=== PATIENT | female | born 1970 | race Caucasian/White ===

== ENCOUNTER 2022-02-26 13:56 | Outpatient (REF) | payer MEDICAID, SELFPAY ==
[2022-02-26 16:55] LABS: HCT 41.8 % (36.0-46.0); HGB 13.4 g/dL (11.2-15.7); MCH 27.3 pg (27.0-33.0); MCHC 32.1 % (32.0-36.0); MCV 85.3 fL (80-95); MPV 9.7 fL (8.0-11.0); Platelet Count 272 10^3/uL (130-400); RDW 13.4 % (11.7-14.6); RDW-SD 41.9 fL; WBC 3.86 10^3/uL (4.4-10.8)
[2022-02-26 18:04] LABS: Hemoglobin A1C 5.9 % (<5.7)
[2022-02-26 18:38] LABS: ALT 61 U/L (14-59); AST 36 U/L (15-37); Albumin 4.5 g/dL (3.4-5.0); Alkaline Phosphatase 78 U/L (46-116); Anion Gap 11.2 mmol/L (3-11); BUN 18 mg/dL (7-18); Bilirubin, Total 0.5 mg/dL (0.2-1.0); CO2 22.8 mmol/L (21.0-32.0); CREATININE 0.7 mg/dL (0.55-1.02); Calcium 9.1 mg/dL (8.5-10.1); Chloride 105 mmol/L (98-107); Glucose 93 mg/dL (74-106); Potassium 4.1 mmol/L (3.5-5.1); Sodium 139 mmol/L (136-145); TSH 4.22 uIU/mL (0.36-3.74); Total Protein 7.9 g/dL (6.4-8.2)
[2022-02-27 11:54] LABS: FREE T4 0.99 ng/dL (0.76-1.46)
== END 2022-02-26 13:57 | disposition home or self-care (01) ==
LOC: NCHCN 13:56
PROVIDERS: Visit Provider Registered Nurse
DX: R53.83 Other fatigue (principal); E66.9 Obesity, unspecified; Z83.3 Family history of diabetes mellitus
CPT/HCPCS: 80053; 85027; 83036; 84439; 84443

== ENCOUNTER 2022-09-15 16:07 | Outpatient (REF) | payer MEDICAID, SELFPAY ==
[2022-09-15 15:42] LABS: ALT 24 U/L (14-59); AST 16 U/L (15-37); Albumin 3.9 g/dL (3.4-5.0); Alkaline Phosphatase 68 U/L (46-116); Anion Gap 7.3 mmol/L (3-11); BUN 16 mg/dL (7-18); Bilirubin, Total 0.3 mg/dL (0.2-1.0); CO2 25.7 mmol/L (21.0-32.0); CREATININE 0.8 mg/dL (0.55-1.02); Calcium 9.2 mg/dL (8.5-10.1); Calculated LDL 147 mg/dL (<100); Chloride 107 mmol/L (98-107); Cholesterol 222 mg/dL (<200); Estimated GFR 88.05 (mL/min/1.73m2); Glucose 89 mg/dL (74-106); HDL Cholesterol 48 mg/dL (40-60); Potassium 4.1 mmol/L (3.5-5.1); Sodium 140 mmol/L (136-145); TSH (W/Ref FT4) 4.27 uIU/mL (0.36-3.74); Total Protein 7.7 g/dL (6.4-8.2); Triglyceride 137 mg/dL (<150)
[2022-09-15 15:55] LABS: Hemoglobin A1C 5.7 % (<5.7)
[2022-09-15 16:31] LABS: FREE T4 1.12 ng/dL (0.76-1.46)
== END 2022-09-15 16:08 | disposition home or self-care (01) ==
LOC: NCHCN 16:07
PROVIDERS: Visit Provider Nurse Practitioner Family
DX: R94.6 Abnormal results of thyroid function studies (principal); R74.01 Elevation of levels of liver transaminase levels; R73.03 Prediabetes; Z13.220 Encounter for screening for lipoid disorders; Z00.00 Encounter for general adult medical examination without abnormal findings
CPT/HCPCS: 80053; 80061; 83036; 84439; 84443

== ENCOUNTER 2022-09-22 14:16 | Outpatient (REF) | payer MEDICAID, SELFPAY ==
--- NOTE | 2022-09-22 11:15 | PAPFT_PTH ---
PATIENT: Arturo Fowler LOC: [facility]#:[id number] AGE/SX: 52/F ROOM: RE09/22/[address]: Carin Conway : 1970 BED: DIS: 09/22/2022 SPEC #: [id number] RECD: 09/23/22 12:55 STATUS: LEONID REQ #: [id number] HERO: 09/22/22 11:[address]: Carin Conway DEPT: [facility] Cytology RECD BY: Alyssa Mariee Tissues: 1 - CX/ENDOCX FOR PAP SMEARS Procedures: PAP THIN PREP/UVM Screening HPV DNA PROBE Comments: [id number] (HPV 16 & 18/45)
[2022-09-23 21:48] LABS: Thyroglobulin Antibody 231 U/mL (<=60)
[2022-09-24 17:12] LABS: Thyroperoxidase Antibody >1300 U/mL (<=60)
== END 2022-09-22 14:17 | disposition home or self-care (01) ==
LOC: NCHCN 14:16
PROVIDERS: Visit Provider Nurse Practitioner Family
DX: R94.6 Abnormal results of thyroid function studies (principal); Z12.4 Encounter for screening for malignant neoplasm of cervix
CPT/HCPCS: 88142; 86376; 86800; 87624

== ENCOUNTER 2023-03-10 14:17 | Outpatient (REF) | payer MEDICAID, SELFPAY ==
[2023-03-10 21:36] LABS: Anion Gap 10.2 mmol/L (3-11); BUN 16 mg/dL (7-18); CO2 23.8 mmol/L (21.0-32.0); CREATININE 0.9 mg/dL (0.55-1.02); Calcium 9.2 mg/dL (8.5-10.1); Calculated LDL 176 mg/dL (<100); Chloride 105 mmol/L (98-107); Cholesterol 248 mg/dL (<200); Estimated GFR 75.97 (mL/min/1.73m2); Glucose 87 mg/dL (74-106); HDL Cholesterol 57 mg/dL (40-60); Potassium 3.9 mmol/L (3.5-5.1); Sodium 139 mmol/L (136-145); TSH (W/Ref FT4) 6.25 uIU/mL (0.36-3.74); Triglyceride 76 mg/dL (<150)
[2023-03-10 22:11] LABS: FREE T4 1.11 ng/dL (0.76-1.46)
== END 2023-03-10 14:18 | disposition home or self-care (01) ==
LOC: NCHCN 14:17
PROVIDERS: Visit Provider Nurse Practitioner Family
DX: E03.9 Hypothyroidism, unspecified (principal)
CPT/HCPCS: 80048; 80061; 84439; 84443

== ENCOUNTER 2023-07-16 14:04 | Outpatient (REF) | payer MEDICAID, SELFPAY ==
[2023-07-16 20:50] LABS: HCT 43.3 % (36.0-46.0); MCH 27.7 pg (27.0-33.0); MCHC 32.3 % (32.0-36.0); MCV 86 fL (80-95); MPV 9.6 fL (8.0-11.0); Platelet Count 289 10^3/uL (130-400); RBC 5.06 10^6/uL (3.93-5.22); RDW-SD 43.9 fL; WBC 3.64 10^3/uL (4.4-10.8)
[2023-07-16 21:10] LABS: Anion Gap 10.2 mmol/L (3-11); BUN 16 mg/dL (7-18); CO2 24.8 mmol/L (21.0-32.0); Calcium 9.6 mg/dL (8.5-10.1); Chloride 107 mmol/L (98-107); Estimated GFR 66.95 (mL/min/1.73m2); Glucose 90 mg/dL (74-106); Potassium 4.4 mmol/L (3.5-5.1); Sodium 142 mmol/L (136-145); TSH (W/Ref FT4) 4.03 uIU/mL (0.36-3.74)
[2023-07-16 22:00] LABS: FREE T4 1.27 ng/dL (0.76-1.46)
== END 2023-07-16 14:05 | disposition home or self-care (01) ==
LOC: NCHCN 14:04
PROVIDERS: Visit Provider Nurse Practitioner Family
DX: E03.9 Hypothyroidism, unspecified (principal); R42 Dizziness and giddiness
CPT/HCPCS: 80048; 85027; 84439; 84443

== ENCOUNTER 2023-09-28 14:38 | Outpatient (REF) | payer MEDICAID, SELFPAY ==
[2023-09-28 21:16] LABS: Hemoglobin A1C 5.1 % (<5.7)
[2023-09-28 21:25] LABS: ALT 27 U/L (14-59); AST 21 U/L (15-37); Albumin 4.2 g/dL (3.4-5.0); Alkaline Phosphatase 65 U/L (46-116); Anion Gap 11.3 mmol/L (3-11); BUN 18 mg/dL (7-18); Bilirubin, Total 0.4 mg/dL (0.2-1.0); CO2 23.7 mmol/L (21.0-32.0); CREATININE 0.9 mg/dL (0.55-1.02); Calcium 9.4 mg/dL (8.5-10.1); Chloride 106 mmol/L (98-107); Estimated GFR 75.97 (mL/min/1.73m2); Glucose 79 mg/dL (74-106); Potassium 4.6 mmol/L (3.5-5.1); Sodium 141 mmol/L (136-145); TSH (W/Ref FT4) 3.47 uIU/mL (0.36-3.74)
== END 2023-09-28 14:39 | disposition home or self-care (01) ==
LOC: NCHCN 14:38
PROVIDERS: Visit Provider Nurse Practitioner Family
DX: E03.9 Hypothyroidism, unspecified (principal); R73.03 Prediabetes; E66.9 Obesity, unspecified; F50.82 Avoidant/restrictive food intake disorder
CPT/HCPCS: 80053; 83036; 84443

== ENCOUNTER 2023-12-17 14:27 | Outpatient (REF) | payer MEDICAID, SELFPAY ==
[2023-12-17 15:21] LABS: Abs Immature Grans 0.01 10^3/uL (0.0-0.06); Absolute Basophil Count 0.05 10^3/uL (0.0-0.2); Absolute Eosinophil Count 0.13 10^3/uL (0.0-0.7); Absolute Monocyte Count 0.38 10^3/uL (0.1-0.8); Absolute Neutrophil Count 2.16 10^3/uL (1.2-6.7); Basophils % 1.1; Eosinophils % 2.9; HCT 41.4 % (36.0-46.0); HGB 13.6 g/dL (11.2-15.7); Immature Grans % 0.2; Lymphocytes % 39.7; MCH 28.4 pg (27.0-33.0); MCHC 32.9 % (32.0-36.0); MCV 86 fL (80-95); MPV 9.5 fL (8.0-11.0); Monocytes % 8.4; Neutrophils % 47.7; Platelet Count 289 10^3/uL (130-400); RBC 4.79 10^6/uL (3.93-5.22); RDW 13.7 % (11.7-14.6); RDW-SD 43.6 fL; WBC 4.53 10^3/uL (4.4-10.8)
[2023-12-17 15:28] LABS: Bilirubin Negative (Negative); Blood Trace-intact (Negative); Clarity Clear (Clear); Glucose Negative (Negative); Ketones Negative (Negative); Leukocyte Esterase Moderate (Negative); Nitrite Negative (Negative); Urobilinogen 0.2 mg/dL (Up to 0.2)
[2023-12-17 15:37] LABS: Bacteria Rare HPF (Negative); C & S Indicated? No/Sq. Contamination; Crystals Negative HPF (Negative); Epithelial Cells Moderate HPF (Negative); Mucus Moderate (Negative); RBC 0-2 HPF (0-2)
[2023-12-17 15:47] LABS: ALT 24 U/L (14-59); AST 19 U/L (15-37); Albumin 4.3 g/dL (3.4-5.0); Alkaline Phosphatase 66 U/L (46-116); Anion Gap 10.1 mmol/L (3-11); BUN 12 mg/dL (7-18); Bilirubin, Total 0.4 mg/dL (0.2-1.0); CO2 24.9 mmol/L (21.0-32.0); CREATININE 0.8 mg/dL (0.55-1.02); Calcium 9.4 mg/dL (8.5-10.1); Chloride 104 mmol/L (98-107); Glucose 84 mg/dL (74-106); Sodium 139 mmol/L (136-145); TSH (W/Ref FT4) 3.56 uIU/mL (0.36-3.74); Total Protein 7.9 g/dL (6.4-8.2)
--- OUTSIDE RECORDS SUMMARY | 2023-12-18 13:03 | XMS_ITS | CCD ---
Author Name Unknown Address [address] [place] [address] [phone] Organization Unknown Address [address] [place] [address] [phone] Care Team Providers Care Survey Research Analyst Name Role Phone KITTY COLMENARES Attending Physician [phone] Vital Signs Unknown or Not Available. Allergies Unknown or Not Available. Procedures Unknown or Not Available. History of Immunizations Unknown or Not Available. Problems Unknown or Not Available. Results Unknown or Not Available. Active Medications Unknown or Not Available. Medications Administered During Visit Unknown or Not Available. Encounters Encounter Diagnosis Diagnosis Code Start Date Inconclusive mammogram R922 2 Social History Unknown or Not Available. Patient Decision Aids Unknown or Not Available. Discharge Instructions You were admitted to [facility] on 08/29/2022 13:23 with a principal diagnosis of Inconclusive mammogram You were discharged from [facility] on 08/29/2022 13:23 Should you have any questions prior to discharge, please contact a member of your healthcare team. If you have left the hospital and have any questions, please contact your primary care physician. Chief Complaint and Reason For Visit Chief Complaint Date of Onset SCREENING Function Status Unknown or Not Available. Plan of Care Unknown or Not Available. Referral/Transition of Care Unknown or Not Available.
--- OUTSIDE RECORDS SUMMARY | 2023-12-18 13:03 | XMS_ITS | CCD ---
Author Name Unknown Address [address] [place] [address] [phone] Organization Unknown Address [address] [place] [address] [phone] Care Team Providers Care Outpatient Program Coordinator Name Role Phone SHER HADLEY Attending Physician [phone] Vital Signs Unknown or Not Available. Allergies Unknown or Not Available. Procedures Unknown or Not Available. History of Immunizations Unknown or Not Available. Problems Unknown or Not Available. Results Unknown or Not Available. Active Medications Unknown or Not Available. Medications Administered During Visit Unknown or Not Available. Encounters Encounter Diagnosis Diagnosis Code Start Date Other abnormal and inconclus gabrielle findings on diagnostic imaging of breast R928 10/31/2022 Social History Unknown or Not Available. Patient Decision Aids Unknown or Not Available. Discharge Instructions You were admitted to [facility] on 10/31/2022 14:24 with a principal diagnosis of Other abnormal and inconclusive findings on diagnostic imaging of breast You were discharged from [facility] on 10/31/2022 14:24 Should you have any questions prior to discharge, please contact a member of your healthcare team. If you have left the hospital and have any questions, please contact your primary care physician. Chief Complaint and Reason For Visit Chief Complaint Date of Onset INCONCLUSIVE MAMMO Function Status Unknown or Not Available. Plan of Care Unknown or Not Available. Referral/Transition of Care Unknown or Not Available.
== END 2023-12-17 14:28 | disposition home or self-care (01) ==
LOC: NCHCN 14:27
PROVIDERS: Visit Provider Student in an Organized Health Care Education/Training Program
DX: E02 Subclinical iodine-deficiency hypothyroidism (principal); R10.31 Right lower quadrant pain; R82.998 Other abnormal findings in urine
CPT/HCPCS: 80053; 81003; 81015; 84443; 85025

== ENCOUNTER 2024-01-11 14:51 | Outpatient (REF) | payer MEDICAID, SELFPAY ==
--- OUTSIDE RECORDS SUMMARY | 2024-01-11 14:53 | XMS_ITS | CCD ---
Author Name Unknown Address [address] [place] [address] [phone] Organization Unknown Address [address] [place] [address] [phone] Care Team Providers Care Projector Booth Operator Name Role Phone KITTY COLMENARES Attending Physician [phone] Vital Signs Unknown or Not Available. [...] You were admitted to [facility] on 08/29/2022 13:23 with a principal diagnosis of Inconclusive mammogram You were discharged from [facility] on 08/29/2022 13:23 Should you have [...]
--- OUTSIDE RECORDS SUMMARY | 2024-01-11 14:53 | XMS_ITS | CCD ---
Author Name Unknown Address [address] [place] [address] [phone] Organization Unknown Address [address] [place] [address] [phone] Care Team Providers Care Framing Manager Name Role Phone SHER HADLEY Attending Physician [phone] Vital Signs Unknown or Not Available. Allergies [...]
[2024-01-11 16:05] LABS: Calculated LDL 174 mg/dL (<100); Cholesterol 271 mg/dL (<200); HDL Cholesterol 48 mg/dL (40-60); Triglyceride 246 mg/dL (<150)
[2024-01-11 17:52] LABS: Hemoglobin A1C 5.2 % (<5.7)
== END 2024-01-11 14:52 | disposition home or self-care (01) ==
LOC: NCHCN 14:51
PROVIDERS: Visit Provider Student in an Organized Health Care Education/Training Program
DX: E78.5 Hyperlipidemia, unspecified (principal); R73.03 Prediabetes
CPT/HCPCS: 80061; 83036

== ENCOUNTER 2024-07-28 17:13 | Outpatient (REF) | payer MEDICAID, SELFPAY ==
--- OUTSIDE RECORDS SUMMARY | 2024-07-28 17:16 | XMS_ITS ---
Author Organization Unknown Address [address] [place] [address] [phone] Phone Care Team Providers Care Electrician Control Equipment Name Role Phone DEDRA Campa Attending Unavailable LEONIE Young Primary Unavailable Results MM SCREENING BILAT MAMMO W T KARTIK W CAD - Completed: 08/29/2022 14:39 LOINC: [facility] [place], [place] [address] PACS KEYBOARD TEACHER REPORT Patient Name: MARLON COONEY MRN: Sex: : Age: [id number] F 1970 52 Account: Accession: Admit: StayType: [id number] 08/29/2022 O/P Ordered: Order ID: Submitted: Ordering Provider: 08/29/2022 13:30 [id number] [facility] KITTY COLMENARES Completed: Technologist: Resulted: 08/29/2022 14:39 KVK 08/29/2022 14:56 Study Description: MM SCREENING BILAT MAMMO W GERALDINE W CAD Study Reason: screening Comparisons: Comparison is made with prior examinations. FINDINGS: Mammography/Tomosynthesis: Masses/Architectural Distortion: None seen. Microcalcifictions: No suspicious pleomorphic-type are seen. Skin Thickening/Nipple Retraction: None. IMPRESSION: 1. No evidence of malignancy is noted. 2. Unless there is more urgent need, follow-up screening mammography is recommended, as per [employer] guidelines. I-RADS Category 1: Negative] I_RADS Density Category C: Heterogeneously dense] Breast density Category C or D implies that the patient has dense breast tissue. Dense breast tissue can make it harder to find cancer on a mammogram. Dense breast tissue is also associated with an increased risk of breast cancer. This information about the result of the mammogram report was provided to the patient to raise their awareness. Use this report when you speak with the patient about their risks for breast cancer, which includes their family history. At that time, you may recommend additional screening tests (Ultrasound or MRI) as these tests may add significant information. A negative radiographic report should not delay biopsy if a dominant or clinically suspicious mass is present. Up to ten percent of cancers are not identified on mammography. A negative report may reinforce clinical impression. Adenosis and dense breasts may obscure an underlying neoplasm. False positive reports average 6 to 10%. Patient will receive a letter notifying them of these results. Report Digitally Signed by Madhu Preciado on 08/29/2022 02:56 PM EDT Social History Type Status Start Date End Date Code Code Syst em Sex Female Hospital Discharge Instructions Should you have any questions prior to discharge, please contact a member of your healthcare team. If you have left the hospital and have any questions, please contact your primary care physician. Reason For Referral No Data Found Allergies and Adverse Reactions Allergy Substance Reaction Severity Start Date Concern Status Co de Code System CIPROFLOXACIN Rash (SNOMED-CT: 858140778) Active 2551 RxNorm LEVOFLOXACIN Active 60277 RxNorm Plan of Treatment MM SCREEN BILAT 04/12/2024 US BREAST GENO 04/01/2024 US PELVIC / TV 01/25/2024 US BREAST GENO 10/31/2022 MM SCREEN BILAT 08/29/2022 Encounters Encounter Diagnosis Start Date Code Code Sys tem Inconclusive mammogram 08/29/2022 SNOME D-CT Personal Care Team Section Performer Name Performer Role Active Date Inactive Da te
--- OUTSIDE RECORDS SUMMARY | 2024-07-28 17:17 | XMS_ITS ---
Author Organization Unknown Address [address] [place] [address] [phone] Phone Care Team Providers Care Steam Service Inspector Name Role Phone LEONIE Young Attending Unavailable Results US BREAST COMPLETE BILAT* - Completed: 10/31/2022 15:06 LOINC: RADIOLOGY [place], [place] [address] PACS LAYOUT MECHANIC REPORT Patient Name: MARLON COONEY MRN: Sex: : Age: [id number] F 1970 52 Account: Accession: Admit: StayType: [id number] 10/31/2022 O/P Ordered: Order ID: Submitted: Ordering Provider: 10/31/2022 14:41 [id number] KT SHER HADLEY Completed: Technologist: Resulted: 10/31/2022 15:06 [facility] 10/31/2022 15:14 Study Description: US BREAST COMPLETE BILAT* Study Reason: ABNORMAL BREAST FINDING TECHNIQUE: Complete ultrasound of both breasts was performed including all 4 quadrants, the retroareolar regions, and both axillary regions. COMPARISON: Prior mammograms were reviewed. Most recent mammogram was 08/29/2022 FINDINGS: There is no evidence of solid nor significant cystic lesions in all 4 quadrants of both breasts. Retroareolar regions were also negative. Scanning both axillary regions negative for significant adenopathy. IMPRESSION: Negative bilateral complete breast ultrasound BI-RADS category: 1-negative Breast density category: C-heterogeneously dense Breast density Category C or D implies [...] of these results. Report Digitally Signed by Trace Ramachandran on 10/31/2022 03:14 PM EST Social History Type Status Start Date End [...] Status Co de Code System CIPROFLOXACIN Rash (OversiOMED-CT: 300440688) Active 2551 RxNorm LEVOFLOXACIN Active 85944 RxNorm Plan of Treatment MM SCREEN BILAT 04/12/2024 US BREAST GENO 04/01/2024 US PELVIC / TV 01/25/2024 US BREAST GENO 10/31/2022 MM SCREEN BILAT 08/29/2022 Encounters Encounter Diagnosis Start Date Code Code Sys tem Other abnormal and inconclus gabrielle findings on diagnostic imaging of breast 10/31/2022 SN3FLOZ-CT Personal Care Team Section Performer Name Performer Role Active Date Inactive Da te
--- OUTSIDE RECORDS SUMMARY | 2024-07-28 17:17 | XMS_ITS ---
Author Organization Unknown Address [address] [place] [address] [phone] Phone Care Team Providers Care Dining Host Name Role Phone JAMES Ch Attending Unavailable DANIE MATT Primary Unavailable Social History Type Status Start Date End [...] Co de Code System CIPROFLOXACIN Rash (SNOMED-CT: 216536636) Active 2551 RxNorm LEVOFLOXACIN Active 14488 RxNorm Plan of Treatment MM SCREEN BILAT 04/12/2024 US BREAST GENO 04/01/2024 US PELVIC / TV 01/25/2024 US BREAST GENO 10/31/2022 MM SCREEN BILAT 08/29/2022 Encounters Encounter Diagnosis Start Date Code Code Sys tem Imaging result abnormal 02/25/2024 [id number] SNOM ED-CT Personal Care Team Section Performer Name Performer Role Active Date Inactive Da cullen
--- OUTSIDE RECORDS SUMMARY | 2024-07-28 17:17 | XMS_ITS ---
Author Organization Unknown Address [address] [place] [address] [phone] Phone Care Team Providers Care Delivery Coordinator Name Role Phone JAMES Ch Attending Unavailable [...] Co de Code System CIPROFLOXACIN Rash (SNOMED-CT: 302882664) Active 2551 RxNorm LEVOFLOXACIN Active 39995 RxNorm Plan of Treatment MM SCREEN BILAT 04/12/2024 US BREAST GENO 04/01/2024 US PELVIC / TV 01/25/2024 US BREAST GENO 10/31/2022 MM SCREEN BILAT 08/29/2022 Encounters Encounter Diagnosis Start Date Code Code Sys tem Pelvic and perineal pain 01/19/2024 [id number] SNO MED-CT Personal Care Team Section Performer Name Performer Role Active Date Inactive Da te
--- OUTSIDE RECORDS SUMMARY | 2024-07-28 17:17 | XMS_ITS ---
Author Organization Unknown Address [address] [place] [address] [phone] Phone Care Team Providers Care Business Operations Director Name Role Phone JAMES Ch Attending Unavailable DANIE MTAT Primary Unavailable Results US PELVIC COMPLETE - Complet ed: 01/25/2024 09:25 LOINC: [facility] [place], [place] [address] PACS HEEL SEAM RUBBER REPORT Patient Name: MARLON COONEY MRN: Sex: : Age: [id number] F 1970 53 Account: Accession: Admit: StayType: [id number] 01/25/2024 O/P Ordered: Order ID: Submitted: Ordering Provider: 01/25/2024 08:46 [id number] RXT AFSHIN RAMIREZ Completed: Technologist: Resulted: 01/25/2024 09:25 RXT 01/25/2024 09:33 Study Description: US PELVIC COMPLETE Study Reason: Fibroids TECNIQUE: Transabdominal exam was performed. Patient unable to tolerate transvaginal imaging. COMPARISON: None. FINDINGS: UTERUS: Anteverted. 9.9 x 6.8 x 5 pointcm. Endometrium: 8 mm. Thickened for postmenopausal patient. Myometrium: Multiple fibroids, some of which are calcified. Posterior fibroid measuring 5.0 x 3.5 x 3.2 cm. Anterior/fundal fibroid measuring three 6 x 3.5 x 2.5 cm. Anterior fibroid measuring 3.7 x 3.6 x 2.2 cm. Right lateral fibroid measuring 3.7 x 2.8 x 2.7 cm. Cervix: Unremarkable. OVARIES: Right: Not visualized. Left: Cyst or mass: None. DOPPLER: Color: Symmetric and uniform flow to both ovaries. No hyperemia. CUL-DE-SAC: Free fluid: None. IMPRESSION: 1. Uterine fibroids. Endometrial stripe appears thickened for a postmenopausal patient. 2. Right ovary not visualized. Left ovary appears normal Report Digitally Signed by Celestina Conrad on 01/25/2024 09:33 AM EST Social History Type Status Start Date [...] Co de Code System CIPROFLOXACIN Rash (SNOMED-CT: 644734012) Active 2551 RxNorm LEVOFLOXACIN Active 87984 RxNorm Plan of Treatment MM SCREEN BILAT 04/12/2024 US BREAST GENO 04/01/2024 US PELVIC / TV 01/25/2024 US BREAST GENO 10/31/2022 MM SCREEN BILAT 08/29/2022 Encounters Encounter Diagnosis Start Date Code Code Sys tem Pelvic and perineal pain 01/25/2024 [id number] [employer]-CT Personal Care Team Section Performer Name Performer Role Active Date Inactive Da te
--- OUTSIDE RECORDS SUMMARY | 2024-07-28 17:18 | XMS_ITS | Encounter Summary ---
Author Organization [facility] Address [address] [place] [address] Care Team Providers Care Environmental Protection Forester Name Role Phone Marily Lau MD Primary Care Provider [phone] Encounter Details Date Type Department Care Team (Late st Contact Info) Description 09/24/2022 Lab Requisition [facility] Pathology & Laboratory Medicine - [address] [address] Carin Conway, [address] [phone] Encounter for general adult medical examination without abnormal findings; Encounter for screening for malignant neoplasm of cervix Social History Tobacco Use Types Packs/Day Years Used Date Smoking Tobacco: Never Assessed Sex and Gender Information Value Date Recorded Sex Assigned at Not on file Gender Identity Female 2023 11:38 EDT Sexual Orientation Not on file documented as of this encounter Plan of Treatment Not on file documented as of this encounter Procedures Procedure Name Priority Date/Time Associated Diagnosis Comments PAP TEST Today 09/23/2022 12:00 EDT Encounter for general adult medical examination without abnormal findings Encounter for screening for malignant neoplasm of cervix HPV DNA DETECTION WITH GENOTYPING, PCR, THINPREP Today 09/23/2022 12:00 EDT Encounter for general adult medical examination without abnormal findings Encounter for screening for malignant neoplasm of cervix documented in this encounter Results * HPV DNA DETECTION WITH GENOTYPING, PCR, THINPREP (09/23/2022 12:00 EDT) Specimen Source vagina 2 17:33 [facility] HPV Risk Type 16, PCR Negative Negative 10/08/2022 17:33 [facility] HPV High Risk Type 18, PcR Negative Negative 10/08/2022 17:33 [facility] HPV Other High Risk Types, PCR Negative Negative 10/08/2022 17:33 [facility] Comment: The following Other High Risk HPV types were not detected: 31, 33, 35, 39, 45, 51, 52, 56, 58, 59, 66, and 68 Test Performed by: [facility] [address] [place] [address] Concrete Engineer: Horacio Cerna M.D. Ph.D.; CLIA# [id number] Papanicolaou smear specimen (specimen) ENTIRE VAGINA / Unknown 09/23/2022 12:00 EDT 10/03/2022 16:35 EDT Carin Conway EMERGENCY MEDICINE MICROBIOLOGY - GENER AL ORDERABLES [facility] [address] [place] [address] * PAP TEST (09/23/2022 12:00 EDT) Specimens A. Vagina , ThinPrep Imaging System with Manual Evaluation 2 18:36 [facility] Specimen Adequacy Satisfactory for Evaluation - assessment of transformation zone component not applicable ( e.g. atrophy, vaginal sample, hysterectomy) 2 18:36 [facility] General Categorization Negative for intraepithelial lesion or malignancy 2 18:36 [facility] Attestation . 2 18:36 [facility] at 1836 Clinical History SEE BELOW 10/08/20 2 2 18:36 [facility] HPV The results for the HPV with Genotyping, PCR, ThinPrep are Negative for the HPV Risk Type 16, PCR, Negative for the HPV High Risk Type 18, PcR, and Negative for the HPV Other High Risk Types, PCR. Testing was performed on specimen [id number] and was resulted on 10/08/2022 1836 EST by [facility], [facility]. Comment: The following Other High Risk HPV types were not detected: 31, 33, 35, 39, 45, 51, 52, 56, 58, 59, 66, and 68 Test Performed by: [facility] [address] [place] [address] Concrete Engineer: Horacio Cerna M.D. Ph.D.; CLIA# [id number] 2 18:36 EST [facility] Performing Lab [facility] 2 18:36 EST [facility] Scanned Images 2 18:36 EST [facility] Papanicolaou smear specimen (specimen) ENTIRE VAGINA / Unknown 09/23/2022 12:00 EDT 09/24/2022 14:25 EDT Carin Conway EMERGENCY MEDICINE PATHOLOGY ORDERABLES Performing Organization Address City/State/[facility] Co de Phone Number [facility] [address] [place], [place] [phone] [place] [phone] documented in this encounter Visit Diagnoses Diagnosis Encounter for general adult medical examination without abnormal findings Unspecified general medical examination Encounter for screening for malignant neoplasm of cervix Screening for malignant neoplasm of the cervix documented in this encounter Care Teams Environmental Protection Forester Relationship Specialty Start Date End Date Marily Lau MD [address] [place] [address] PCP - General 10/17/15 documented as of this encounter
--- OUTSIDE RECORDS SUMMARY | 2024-07-28 17:18 | XMS_ITS | Encounter Summary ---
Author Organization [facility] Address [address] [place] [address] Care Team Providers Care Cupola Tender Name Role Phone Marily Lau MD Primary Care Provider [phone] Encounter Details Date Type Department Care Team (Late st Contact Info) Description 2023 11:45 EDT Phlebotomy Only [facility] ED Center 2 Phlebotomy [address] [place] [address] Wall Taper Helper, Acc Phlebotomy Health examination in population survey (Primary Dx) Social History Tobacco Use Types Packs/Day Years Used Date Smoking Tobacco: Never Assessed Sex and Gender Information Value Date Recorded Sex Assigned at Not on file Gender Identity Female 2023 11:38 EDT Sexual Orientation Not on file documented as of this encounter Plan of Treatment Not on file documented as of this encounter Procedures Procedure Name Priority Date/Time Associated Diagnosis Comments LAB VENIPUNCTURE DRAW TEST Routine 2023 12:10 EDT Health examination in population survey REFERRAL TEST 1 Routine 2023 12:10 EDT Health examination in population survey documented in this encounter Results * REFERRAL TEST 1 (2023 12:10 EDT) Test Name 03/25/2023 8:34 EDT [facility] ([facility]. TESTING) Comment:MULTI CANCER GENES P ALLYN RNA , BRA 1/2 EXPANDED Result 03/25/2023 8:34 EDT [facility] ([facility]. TEST[facility]) Comment: See scanned/supplementary report. Ref Lab [facility] 03/25/2023 8:34 EDT [facility] ([facility] TESTING) Date Sample Shipped 2023 03/25/2023 8:34 EDT [facility] ([facility] TESTING) Blood VENOUS BLOOD / Unknown Venipuncture / Unknown 2023 12:10 EDT 2023 14:05 EDT Navneet Sheridan MD LAB INFO SERVI CE AND SUPPORT & PHONE RESULT [facility] [address] [place] [address] * LAB VENIPUNCTURE DRAW TEST (2023 12:10 EDT) Hold Hold 2023 15:15 EDT [facility] Blood VENOUS BLOOD / Unknown Venipuncture / Unknown 2023 12:10 EDT 2023 14:05 EDT Navneet Sheridan MD LAB INFO SERVI CE AND SUPPORT & PHONE RESULT [facility] [address] [place] [address] documented in this encounter Visit Diagnoses Diagnosis Health examination in population survey- Primary documented in this encounter Care Teams Cupola Tender Relationship Specialty Start Date End Date Marily Lau MD [address] [place] [phone] PCP - General 10/17/15 documented as of this encounter
--- OUTSIDE RECORDS SUMMARY | 2024-07-28 17:18 | XMS_ITS | Clinical Summary ---
Author Organization [facility] Address [address] [place] [address] Care Team Providers Care Floater Operator Name Role Phone Marily Lau MD Primary Care Provider [phone] Social History Tobacco Use Types Packs/Day Years Used Date Smoking Tobacco: Never Assessed Sex and Gender Information Value Date Recorded Sex Assigned at Not on file Gender Identity Female 2023 11:38 EDT Sexual Orientation Not on file Plan of Treatment Health Maintenance Due Date Last Done Comments Hepatitis C Screen 1970 Hepatitis B Vaccine (1 of 3 - 19+ 3-dose series) 03/04 COVID-19 Vaccine ( season) 2023 Care Teams Floater Operator Relationship Specialty Start Date End Date Marily Lau MD [address] [place] [phone] PCP - General 10/17/15
--- OUTSIDE RECORDS SUMMARY | 2024-07-28 17:18 | XMS_ITS ---
Author Organization Unknown Address [address] [place] [address] [phone] Phone Care Team Providers Care Chef Assistant Name Role Phone MARIELENOREHernan Ch Attending Unavailable DANIE MATT Primary Unavailable Results CBC W/ DIFFERENTIAL* - Colle ct Date/Time: 03/30/2024 14:15 ID: [id number] - [id number] [address] [place], [place], [address] LOINC: 77617-2 Test Value Unit Reference Range Code Code System Flag WBC 3.70 th/cmm L=5.00 H=10.00 6690-2 LOINC L NEUT % 48.8 % L=40.0 H=80.0 LYMPH % 37.0 % L=10.0 H=50.0 MONO % 8.4 % L=2.0 H=12.0 13958-0 LOINC EOS % 4.1 % L=0.0 H=8.0 BASO % 1.4 % L=0.0 H=3.0 IG % 0.3 % L=0.0 H=1.1 2514-8 LOINC NRBC % 0.0 % L=0.0 H=0.0 99328-6 LOINC NEUT abs count 1.8 th/cmm L=1.6 H=8.4 751-8 LOINC LYMPH abs count 1.4 th/cmm L=1.5 H=4.0 731-0 LOINC L MONO abs count 0.3 th/cmm L=0.2 H=1.0 742-7 LOINC EOS abs count 0.2 th/cmm L=0.0 H=0.5 711-2 LOINC BASO abs count 0.1 th/cmm L=0.0 H=0.2 704-7 LOINC IG abs count 0.0 th/cmm L=0.0 H=0.1 03336-5 LOINC NRBC abs count 0.0 mil/cmm L=0.0 H=0.0 51483-3 LOINC RBC 4.20 mil/cmm L=3.90 H=5.40 789-8 LOINC HEMOGLOBIN 11.9 gm/dL L=12.0 H=16.0 718-7 LOINC L HEMATOCRIT 37 % L=37 H=47 4544-3 LOINC MCV 88 fL L=82 H=92 787-2 LOINC MCH 28.3 pg L=27.0 H=31.0 785-6 LOINC MCHC 32.3 % L=32.0 H=36.0 786-4 LOINC RDW-SD 43.7 fL L=39.0 H=49.0 788-0 LOINC PLATELET COUNT 268 th/cmm L=150 H=450 777-3 LOINC Social History Type Status Start Date End [...] Co de Code System CIPROFLOXACIN Rash (SNOMED-CT: 011756256) Active 2551 RxNorm LEVOFLOXACIN Active 44555 RxNorm Plan of Treatment MM SCREEN BILAT 04/12/2024 US BREAST GENO 04/01/2024 US PELVIC / TV 01/25/2024 US BREAST GENO 10/31/2022 MM SCREEN BILAT 08/29/2022 Encounters Encounter Diagnosis Start Date Code Code Sys tem Pre-surgery evaluation 03/30/2024 [id number] [employer] D-CT Personal Care Team Section Performer Name Performer Role Active Date Inactive Da cullen
--- OUTSIDE RECORDS SUMMARY | 2024-07-28 17:18 | XMS_ITS | Encounter Summary ---
Author Organization [facility] Address [address] [place] [address] Care Team Providers Care Network Manager Name Role Phone Marily Lau MD Primary Care Provider [phone] Reason for Visit * Reason Onset Date Comments Appointment Related 10/03/2022 fcp Encounter Details Date Type Department Care Team ([facility] st Contact Info) Description 10/03/2022 Telephone [facility] Hematology & Oncology - [address] [address] Fcp, Provider, Appointment Related (fcp) Social History Tobacco Use Types Packs/Day Years Used Date Smoking Tobacco: Never Assessed Sex and Gender Information Value Date Recorded Sex Assigned at Not on file Gender Identity Female 2023 11:38 EDT Sexual Orientation Not on file documented as of this encounter Miscellaneous Notes * Telephone Encounter - Ofelia Tom - 10/03/2022 1132 EDT Called and spoke with patient, she accepted an in person on December 23, 2022 at 2:30 p.m. with Karen Soriano MS Pt confirmed FH and personal history of genetic screening No Pt confirmed primary insurance is Medicaid Mailing WP documented in this encounter Plan of Treatment Not on file documented as of this encounter Visit Diagnoses Not on filedocumented in this encounter Care Teams Network Manager Relationship Specialty Start Date End Date Marily Lau MD [address] [place] [id number] PCP - General 10/17/15 documented as of this encounter
--- OUTSIDE RECORDS SUMMARY | 2024-07-28 17:18 | XMS_ITS ---
Author Organization Unknown Address [address] [place] [phone] Phone Care Team Providers Care Timber Robber Name Role Phone JAMES Ch Attending Unavailable IGOR Larios CRNA Unavailable DANIE MATT Primary Unavailable Social History Type Status Start Date End Date Code Code Syst em Sex Female Vital Signs Vital Sign Value Unit Marquette Value Marquette Unit Date/Time Recent/Initial? Code Code System Body Mass Index 31.64 kg/m2 04/11/2024 09:59 Initial 43813 -5 [facility] Systolic Blood Pressure 103 mm[Hg] 04/18/2024 14:55 Initial 8480- 6 LOINC Diastolic Blood Pressure 66 mm[Hg] 04/18/2024 14:55 Initial 8462- 4 INC Body Surface Area 1.85 m2 04/11/2024 09:59 Initial 3140- 1 LOINC Height 157.480 0 cm 62.00 in 04/11/2024 09:59 Initial 8302- 2 INC O2 Saturation 96 % 2023 14:55 Initial 20926 -5 [facility] Pulse 3.0 /min 04/18/2024 14:55 Initial 8867- 4 LOINC Respiration 13 /min 04/18/20 14:55 Initial 9279- 1 LOINC Temperature 36.0 Karen 96.8 F 04/18/20 24 14:55 Initial 8310- 5 LOINC Weight 78.47 kg 173.00 lbs 04/11/2024 09:59 Initial 99824 -7 [facility] Hospital Discharge Instructions Should you have any questions prior to discharge, please contact a member of your healthcare team. If you have left the hospital and have any questions, please contact your primary care physician. Reason For Referral No Data Found Procedures Procedure Name Date Status Code Code Syste m Hysteroscopy, Surgical; w/En dometrial Bx &/Or Polypectomy w/wo D&C 04/18/2024 completed 17972 CPT Anesthesia, Vaginal Proc, w/ Bx; Hysteroscopy &/Or Hysterosalpingography 04/18/2024 completed 99186 CPT Allergies and Adverse Reactions Allergy Substance Reaction Severity Start Date Concern Status Co de Code System CIPROFLOXACIN Rash (AlleyWatchOMED-CT: 536486846) Active 2551 RxNorm LEVOFLOXACIN Active 44226 RxNorm Plan of Treatment MM SCREEN BILAT 04/12/2024 US BREAST GENO 04/01/2024 US PELVIC / TV 01/25/2024 US BREAST GENO 10/31/2022 MM SCREEN BILAT 08/29/2022 Encounters Encounter Diagnosis Start Date Code Code Sys tem Abnormal findings on diagnos tic imaging of other specified body structures 04/18/2024 SNOMED-CT Personal Care Team Section Performer Name Performer Role Active Date Inactive Da te Laboratory Narrative Notes
--- OUTSIDE RECORDS SUMMARY | 2024-07-28 17:18 | XMS_ITS ---
Author Organization Unknown Address [address] [place] [phone] Phone Care Team Providers Care Coagulator Name Role Phone MARIELENOREHernan Ch Attending Unavailable Social History Type Status Start Date [...] Bx &/Or Polypectomy w/wo D&C 04/18/2024 completed 17500 CPT Allergies and Adverse Reactions Allergy Substance Reaction Severity Start Date Concern Status Co de Code System CIPROFLOXACIN Rash (SNOMED-CT: 310624497) Active 2551 RxNorm LEVOFLOXACIN Active 82135 RxNorm Plan of Treatment MM SCREEN BILAT [...]
--- OUTSIDE RECORDS SUMMARY | 2024-07-28 17:18 | XMS_ITS | Encounter Summary ---
Author Organization [facility] Address [address] [place] [address] Care Team Providers Care Quality Control Checker Name Role Phone Marily Lau MD Primary Care Provider [phone] Reason for Visit * Reason Comments Genetic Evaluation * Consult, Test and Treat (Routine) - Authorization Not Required Specialty Diagnoses / Procedures Referred By Eamon whalen Referred To Contact Cancer Genetics Diagnoses Family history of malignant neoplasm of breast Carin Conway FNP [address] [place] [address] [facility] Ep2 Hem/Onc [address] [place] [address] Referral ID Status Reason Start Date Expiration Date Visits Requested Visits Authorized [id number] Authorization Not Required 1 1 Encounter Details Date Type Department Care Team (Late st Contact Info) Description 2023 10:30 EDT Office Visit [facility] Hematology & Oncology - [facility] [address] [place], [place] [phone] Karen Soriano, MS [address] [place], [place] [phone] Encounter for nonprocreative genetic counseling (Primary Dx); Family history of breast cancer; Genetic testing Social History Tobacco Use Types Packs/Day Years Used Date Smoking Tobacco: Never Assessed Sex and Gender Information Value Date Recorded Sex Assigned at Not on file Gender Identity Female 2023 11:38 EDT Sexual Orientation Not on file documented as of this encounter Progress Notes * RashardKaren garcia, MS - 2023 1030 EDT NEW PATIENT EVALUATION: FAMILIAL CANCER PROGRAM Arturo Fowler DATE OF : 1970 DATE OF CONSULTATION: 2023 IN PERSON VISIT Arturo Fowler was seen in the Familial Cancer Program at the [facility] in [place], [place]. Arturo Fowler was referred for genetic counseling due to family history of cancer. I reviewed the personal medical history as well as family history, discussed options for genetic testing, as well as implications of any results. Medical History: Arturo Fowler is a 53 y.o. female. She is considering a breast reduction and feels genetic testing would be helpful in her decision making. Her uterus and ovaries are intact. Sheis on a 10-year follow-up for colonoscopy. She had her appendix removed in 1980, and an umbilical hernia repair in 2019. Menstrual History: She began having menstrual periods at age 10. She was twice with no live births. She underwent menopause naturally in the fall 2019. She never took fertility medications. She took oral contraceptives for about 4 months. She did not take hormone replacement therapy. Social History: She is single. 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 She quit smoking about 5 years ago, she smoked about a pack a day for 15 years. She does not drink alcohol. Family History: A 4 generation pedigree was obtained - She has no biological children - Her brother is 57 and has a son and a daughter - Her mother at age 72, she was diagnosed with breast cancer at age 62 and then developed bonemetastasis, her mother did not have genetic testing - A maternal uncle in his 50s and had no children - A maternal uncle around 80 and had 1 daughter - A maternal aunt at an older age and had no children - A maternal aunt is 76 and has 2 daughters - A maternal aunt at 72 and had no children - The maternal grandmother lived to her late 80s - The maternal grandfather of a heart issue at age 69 - Maternal ancestry is [place]. - Her father of a heart issue at age 64 - She knows her father had 1 sister who of a heart issue, he had other siblings but was estranged from his family and therefore no additional health information is known - No information is known about the paternal grandparents - Paternal ancestry is Pashto Assessment: I discussed with Arturo Fowler the possibility that inherited factors are playing arole in the development of cancer in this family. We discussed that genetic testing could have implications with regard to options for cancer screening and prevention for multiple cancer types, both for the patient and potentially family members. She has unknown family history on her father side ofthe family, and her mother was diagnosed with metastatic breast cancer, therefore genetic testing is reasonable. We discussed the risks benefits and limitations of the current genetic testing technology, including the possibility of finding a pathogenic abnormality in a gene with evidence based guidelines for screening, a pathogenic abnormality in a gene without evidence based guidelines for screening, or finding a variant of uncertain significance. We discussed that if genetic testing is performed and no abnormalities are identified, this is an inconclusive result, and future cancer risks are based on the family history of cancer. We also reviewed the Genetic Information Non-Discrimination Act (RUCHI). This law prevents health insurance companies (Title I) and employers (Title II) from discriminating against someone based on their genetic information. Genetic information is defined as genetic testing results, family health history, participation in genetic research and use of genetic services. In regards to employment, thislaw does not apply to the [place] and employers with fewer than 15 employees. The law also doesnot include protections in regards to life insurance, disability insurance, and long-term care insurance. Plan: Following our discussion, Arturo Fowler proceeded to the lab and chose to have blood drawn and sent to [facility] for genetic testing. Results will be available in 2 to 3 weeks. Iwill call by phone with the results, and if they are positive, we will have another visit to the Familial Cancer Program for further discussion of the implications of these results. Time: I spent a total of 50 minutes on the date of this encounter meeting with the patient and reviewing documentation/coordinating care as described in the above note. * Yelena Cordova MD - 2023 1030 EDT Agree with assessment and plan as in Genetic Counselor note. Yelena Cordova MD documented in this encounter Plan of Treatment Not on file documented as of this encounter Visit Diagnoses Diagnosis Encounter for nonprocreative genetic counseling- Primary Family history of breast cancer Family history of malignant neoplasm of breast Genetic testing Other investigation and testing for procreative management documented in this encounter Care Teams Quality Control Checker Relationship Specialty Start Date End Date Marily Lau MD [address] [place] [address] PCP - General 10/17/15 documented as of this encounter
--- OUTSIDE RECORDS SUMMARY | 2024-07-28 17:18 | XMS_ITS | Referral Summary ---
Author Organization [facility] Address [address] [place] [address] Care Team Providers Care Fiscal Services Manager Name Role Phone Marily Lau MD Primary Care Provider [phone] Social History Tobacco Use Types Packs/Day Years Used Date Smoking Tobacco: Never Assessed Sex and Gender Information Value Date Recorded Sex Assigned at Not on file Gender Identity Female 2023 11:38 EDT Sexual Orientation Not on file Plan of Treatment Not on file Care Teams Fiscal Services Manager Relationship Specialty Start Date End Date Marily Lau MD [address] [place] [address] PCP - General 10/17/15
--- OUTSIDE RECORDS SUMMARY | 2024-07-28 17:18 | XMS_ITS | Encounter Summary ---
Author Organization [facility] Address [address] [place] [address] Care Team Providers Care Bend Up Name Role Phone Marily Lau MD Primary Care Provider [phone] Reason for Visit * Reason Onset Date Comments Appointment Related 12/19/2022 Encounter Details Date Type Department Care Team (Late st Contact Info) Description 12/19/2022 Telephone [facility] Center Hematology & Oncology - [facility] [address] [place] [address] Karen Soriano, MS [address] [place], [place] [address] Appointment Related Social History Tobacco Use Types Packs/Day Years Used Date Smoking Tobacco: Never Assessed Sex and Gender Information Value Date Recorded Sex Assigned at Not on file Gender Identity Female 2023 11:38 EDT Sexual Orientation Not on file documented as of this encounter Miscellaneous Notes * Telephone Encounter - Ofelia Tom - 12/22/2022 0806 EST Called and spoke with patient. She accepted an in person on 03/04/23 at 10:30 a.m. with Karen. * Telephone Encounter - Su Van - 12/19/2022 1704 EST Patioent called in states she need to reschedule her 12/23 appointment. /please advise documented in this encounter Plan of Treatment Not on file documented as of this encounter Visit Diagnoses Not on filedocumented in this encounter Care Teams Bend Up Relationship Specialty Start Date End Date Marily Lau MD [address] [place] [address] PCP - General 10/17/15 documented as of this encounter
--- OUTSIDE RECORDS SUMMARY | 2024-07-28 17:18 | XMS_ITS ---
Author Organization Unknown Address [address] [place] [phone] Phone Care Team Providers Care Closet Builder Name Role Phone JAMES Ch Attending Unavailable DANIE MATT Primary Unavailable Results US BREAST COMPLETE BILAT* - Completed: 04/01/2024 14:16 LOINC: [place], [place] [address] PACS BRAKE LINING FINISHER REPORT Patient Name: MARLON COONEY MRN: Sex: : Age: [id number] F [id number] Account: Accession: Admit: StayType: [id number] 04/01/2024 O/P Ordered: Order ID: Submitted: Ordering Provider: 04/01/2024 13:45 [id number] KT AFSHIN RAMIREZ Completed: Technologist: Resulted: 04/01/2024 14:16 [facility] 04/01/2024 14:55 Study Description: US BREAST COMPLETE BILAT Study Reason: SCREENING TECHNIQUE: Complete ultrasound of both breasts was performed incluing all 4 quadrants, the retroareolar regions, and both axillary regions. COMPARISON: Mammograms from 2015 through 2021. Bilateral breast ultrasound 10 November 2022 FINDINGS: Right breast: No evidence of a cyst. No suspicious solid masses. No ductal dilatation. No axillary adenopathy. No skin thickening.] Left breast: Clustered microcysts measuring 4 x 4 x 5 mm in the 1 o'clock position, 8 cm from the nipple. No suspicious solid masses. No ductal dilatation. No axillary adenopathy. No skin thickening. IMPRESSION: 1. Left breast 5 mm clustered microcysts. Right breast negative. BI-RADS Category 2, negative with benign findings. Bilateral screening mammography is recommended. A negative radiographic report should not delay [...] of these results. Report Digitally Signed by Celestina Conrad on 04/01/2024 02:55 PM EDT Social History Type Status Start [...] Status Co de Code System CIPROFLOXACIN Rash (Sophia LearningOMED-CT: 537042573) Active 2551 RxNorm LEVOFLOXACIN Active 38863 RxNorm Plan of Treatment MM SCREEN BILAT 04/12/2024 US BREAST GENO 04/01/2024 US PELVIC / TV 01/25/2024 US BREAST GENO 10/31/2022 MM SCREEN BILAT 08/29/2022 Encounters Encounter Diagnosis Start Date Code Code Sys tem Inconclusive mammography finding 04/01/2024 [id number] [place] Personal Care Team Section Performer Name Performer Role Active Date Inactive Da te
--- OUTSIDE RECORDS SUMMARY | 2024-07-28 17:18 | XMS_ITS | Encounter Summary ---
Author Organization [facility] Address [address] [place] [address] Care Team Providers Care Senior Network Systems Engineer Name Role Phone Marily Lau MD Primary Care Provider [phone] Reason for Visit * Reason Onset Date Comments Appointment Related 09/26/2022 fcp Encounter Details Date Type Department Care Team ([facility] st Contact Info) Description 09/26/2022 Telephone [facility] Center Hematology & Oncology - [address] [phone] Fcp, Provider, Appointment Related (fcp) Social History Tobacco Use Types Packs/Day Years Used Date Smoking Tobacco: Never Assessed Sex and Gender Information Value Date Recorded Sex Assigned at Not on file Gender Identity Female 2023 11:38 EDT Sexual Orientation Not on file documented as of this encounter Miscellaneous Notes * Telephone Encounter - Ofelia Tom - 09/26/2022 1306 EDT Called and LVMOM for patient regarding FCP referral. Left my direct number (1st attempt) documented in this encounter Plan of Treatment Not on file documented as of this encounter Visit Diagnoses Not on filedocumented in this encounter Care Teams Senior Network Systems Engineer Relationship Specialty Start Date End Date Marily Lau MD [address] [place] [address] PCP - General 10/17/15 documented as of this encounter
--- OUTSIDE RECORDS SUMMARY | 2024-07-28 17:19 | XMS_ITS | Encounter Summary ---
Author Organization [facility] Address [address] [place] [address] Care Team Providers Care Game Design Instructor Name Role Phone Marily Lau MD Primary Care Provider [phone] Encounter Details Date Type Department Care Team (Late st Contact Info) Description 09/22/2022 Lab Requisition [facility] Pathology & Laboratory Medicine - [address] [address] Outr Resulting Lab, Provider Social History Tobacco Use Types Packs/Day Years Used Date Smoking Tobacco: Never Assessed Sex and Gender Information Value Date Recorded Sex Assigned at Not on file Gender Identity Female 2023 11:38 EDT Sexual Orientation Not on file documented as of this encounter Plan of Treatment Not on file documented as of this encounter Procedures Procedure Name Priority Date/Time Associated Diagnosis Comments ANTI THYROGLOBULIN Routine 09/22/2022 11 :00 EDT documented in this encounter Results * (ABNORMAL) ANTI THYROGLOBULIN (09/22/2022 11:00 EDT) Anti-Thyroglob ulin 231(H) <=60 U/mL 09/23/2022 21:42 EDT [facility] Blood VENOUS BLOOD / Unknown 09/22/2022 11:00 EDT 09/23/2022 20:27 EDT Provider Outr Resulting Lab CHEMISTRY & BLOOD GAS ORDERABLES [facility] [address] [place] [address] documented in this encounter Visit Diagnoses Not on filedocumented in this encounter Care Teams Game Design Instructor Relationship Specialty Start Date End Date Marily Lau MD [address] [place] [address] PCP - General 10/17/15 documented as of this encounter
--- OUTSIDE RECORDS SUMMARY | 2024-07-28 17:19 | XMS_ITS | Encounter Summary ---
Author Organization [facility] Address [address] [place] [address] Care Team Providers Care Rn Home Health Name Role Phone Marily Lau MD Primary Care Provider [phone] Encounter Details Date Type Department Care Team (Late st Contact Info) Description 09/24/2022 Lab Requisition [facility] Pathology & Laboratory Medicine - [address] [address] Outr Resulting Lab, Provider Social History Tobacco [...] Procedure Name Priority Date/Time Associated Diagnosis Comments THYROPEROXIDASE ANTIBODY Routine 09/22/2022 11:00 EDT documented in this encounter Results * (ABNORMAL) THYROPEROXIDASE ANTIBODY (09/22/2022 11:00 EDT) Thyroperoxidase Ab >1,300(H) <=60 U/mL 2021 17:07 EDT [facility] Blood VENOUS BLOOD / Unknown 09/22/2022 11:00 EDT 09/24/2022 16:31 EDT Provider Outr Resulting Lab CHEMISTRY & BLOOD GAS ORDERABLES [facility] [address] [place] [address] documented in this encounter Visit Diagnoses Not on filedocumented in this encounter Care Teams Rn Home Health Relationship Specialty Start Date End Date Marily Lau MD [address] [place] [address] PCP - General 10/17/15 documented as of this encounter
[2024-07-28 19:30] LABS: Bilirubin Negative (Negative); Blood Trace-intact (Negative); Clarity Clear (Clear); Glucose Negative (Negative); Ketones Negative (Negative); Leukocyte Esterase Moderate (Negative); Nitrite Negative (Negative); Specific Gravity 1.015 (1.005-1.025); Urobilinogen 0.2 mg/dL (Up to 0.2); pH 6.5 (5-8)
[2024-07-28 19:41] LABS: Bacteria Few HPF (Negative); C & S Indicated? Yes; Crystals Negative HPF (Negative); Epithelial Cells Few HPF (Negative); Mucus Negative (Negative)
== END 2024-07-28 17:14 | disposition home or self-care (01) ==
LOC: NCHCN 17:13
PROVIDERS: Visit Provider Student in an Organized Health Care Education/Training Program
DX: R82.998 Other abnormal findings in urine (principal); R10.9 Unspecified abdominal pain
CPT/HCPCS: 81003; 81015; 87086

== ENCOUNTER 2025-01-24 01:32 | Outpatient (CLI) | payer MEDICAID, SELFPAY ==
--- NOTE | 2025-01-24 15:11 | DI.MAMMO_ITS ---
Exam(s) MG MAMMO SCREEN CALL BACK UNI EXAM: MG MAMMO SCREEN CALL BACK UNI INDICATION: F/U MAMMO KENNEDI,R92.8,NEW GROUPING MICROCALCIFICATIONS RT UPPER BREAST. COMPARISON: DOC,MG MM DIGITAL SCR W GERALDINE BILATERAL from 08/29/2022 US US BREAST COMPLETE BILAT* from 10/31/2022 DOC,US US BREAST COMPLETE BILAT from 04/01/2024 MG MM SCREENING BILAT MAMMO W GERALDINE W CAD from 01/06/2025 TECHNIQUE: Spot magnification MLO views were performed. FINDINGS: The spot magnification views do not demonstrate calcifications. The questioned calcification on the screening exam corresponds to a vessel which was coiled upon itself, falsely creating increased dens ity. IMPRESSION: No evidence of abnormal calcification or mass. BI-RADS Category 1 - Negative. Annual screening mammography is recommended. Breast Density - Category B - Scattered areas of fibroglandular density
== END 2025-01-24 01:52 ==
LOC: DI 01:32
PROVIDERS: Visit Provider Student in an Organized Health Care Education/Training Program
DX: Z12.31 Encounter for screening mammogram for malignant neoplasm of breast (principal); R92.8 Other abnormal and inconclusive findings on diagnostic imaging of breast; R92.323 Mammographic fibroglandular density, bilateral breasts
CPT/HCPCS: 77063; 77067

== ENCOUNTER 2025-04-18 19:00 | Outpatient (REF) | payer MEDICAID, SELFPAY ==
[2025-04-18 19:11] LABS: HCT 41.1 % (36.0-46.0); HGB 13.1 g/dL (11.2-15.7); MCH 28.6 pg (27.0-33.0); MCHC 31.9 % (32.0-36.0); MCV 90 fL (80-95); MPV 9.5 fL (8.0-11.0); Platelet Count 285 10^3/uL (130-400); RBC 4.58 10^6/uL (3.93-5.22); RDW 13.2 % (11.7-14.6); RDW-SD 43.6 fL; WBC 3.57 10^3/uL (4.4-10.8)
[2025-04-18 19:12] LABS: ESR 6 mm/hr (0-30)
[2025-04-18 19:49] LABS: ALT 28 U/L (14-59); AST 22 U/L (15-37); Albumin 4.2 g/dL (3.4-5.0); Alkaline Phosphatase 65 U/L (46-116); Anion Gap 4.3 mmol/L (3-11); BUN 18 mg/dL (7-18); Bilirubin, Total 0.3 mg/dL (0.2-1.0); CO2 29.7 mmol/L (21.0-32.0); CREATININE 0.9 mg/dL (0.55-1.02); Calcium 9.2 mg/dL (8.5-10.1); Chloride 105 mmol/L (98-107); Estimated GFR 75.03 (mL/min/1.73m2); Glucose 77 mg/dL (74-106); Potassium 4.1 mmol/L (3.5-5.1); Sodium 139 mmol/L (136-145); Total Protein 7.5 g/dL (6.4-8.2); Vitamin B12 344 pg/mL (193-986)
[2025-04-18 20:08] LABS: C-Reactive Protein < 0.50 mg/dL (<or=0.5)
== END 2025-04-18 19:01 | disposition home or self-care (01) ==
LOC: NCHCN 19:00
PROVIDERS: Visit Provider Student in an Organized Health Care Education/Training Program
DX: R53.83 Other fatigue (principal)
CPT/HCPCS: 80053; 85027; 85652; 82607; 86140

== ENCOUNTER 2025-06-29 13:36 | Outpatient (CLI) | payer MEDICAID, SELFPAY ==
[2025-06-29 14:11] LABS: ALT 25 U/L (14-59); AST 21 U/L (15-37); Albumin 4.2 g/dL (3.4-5.0); Alkaline Phosphatase 72 U/L (46-116); Anion Gap 5.9 mmol/L (3-11); BUN 21 mg/dL (7-18); Bilirubin, Total 0.5 mg/dL (0.2-1.0); CO2 28.1 mmol/L (21.0-32.0); Calcium 9.2 mg/dL (8.5-10.1); Chloride 106 mmol/L (98-107); Estimated GFR 66.12 (mL/min/1.73m2); Glucose 85 mg/dL (74-106); Potassium 3.9 mmol/L (3.5-5.1); Sodium 140 mmol/L (136-145); TSH 3.95 uIU/mL (0.36-3.74); Total Protein 8.0 g/dL (6.4-8.2)
[2025-07-04 01:26] LABS: Pyridoxal 5-Phosphate (PLP), P 45 mcg/L (5-50)
== END 2025-06-29 13:37 | disposition home or self-care (01) ==
LOC: LBO 13:36
PROVIDERS: Visit Provider Student in an Organized Health Care Education/Training Program
DX: E03.8 Other specified hypothyroidism (principal); R20.8 Other disturbances of skin sensation
CPT/HCPCS: 80053; 84207; 84439; 84443